=== PATIENT | female | born 1955 | race Caucasian/White ===

== ENCOUNTER 2017-09-17 19:01 | Inpatient (IN) | payer MEDICAID ==
[2017-09-17] MEDS ORDERED: NORMAL SALINE 1000 ML 1,000 ML IV ONE (19:52)
[2017-09-17] MEDS ORDERED: ONDANSETRON HCL INJ/PF 4 MG/2 ML SDV IV ONE (19:52)
[2017-09-17 20:09] LABS: HEMATOCRIT 41.8 % (36.0-47.0); HEMOGLOBIN 13.6 g/dL (12.0-15.5); MEAN CORPUSCULAR HEMOGLOBIN 27.5 pg (27.0-33.4); MEAN CORPUSCULAR HGB CONC 32.4 g/dL (32.0-36.0); MEAN CORPUSCULAR VOLUME 85 fl (80-97); PLATELET COUNT 333 10^3/uL (150-450); RED BLOOD COUNT 4.93 10^6/uL (3.72-5.28); RED CELL DISTRIBUTION WIDTH 14.2 % (11.5-14.0); WHITE BLOOD COUNT 19.4 10^3/uL (4.0-10.5)
[2017-09-17 20:12] LABS: ALANINE AMINOTRANSFERASE 19 U/L (9-52); ALKALINE PHOSPHATASE 83 U/L (38-126); ANION GAP 10 (5-19); ASPARTATE AMINO TRANSFERASE 26 U/L (14-36); BILIRUBIN,DIRECT 0.4 mg/dL (0.0-0.4); BILIRUBIN,TOTAL 0.8 mg/dL (0.2-1.3); BLOOD UREA NITROGEN 32 mg/dL (7-20); CALCIUM 9.8 mg/dL (8.4-10.2); CARBON DIOXIDE 25 mmol/L (22-30); CHLORIDE 107 mmol/L (98-107); GLUCOSE 145 mg/dL (75-110); LIPASE 129.6 U/L (23-300); SODIUM 142.4 mmol/L (137-145)
[2017-09-17] MEDS ORDERED: IPRATROPIUM/ALBUTEROL 0.5-2.5 MG/3 ML AMPUL NEB ONE (20:24)
--- NOTE | 2017-09-17 20:25 | ER Document Report ---
ED General - General Chief Complaint: Nausea/Vomiting/Diarrhea Stated Complaint: NAUSEA/VOMITING/DIARRHEA Time Seen by Provider: 09/17/17 19:51 Notes: Patient is a 62-year-old female with a past medical history of COPD with chronic oxygen dependence, morbid obesity, hypertension, hyperlipidemia, who presents with 24 hours of progressively worsening shortness of breath, vomiting and diarrhea. Multiple family members have been sick with the vomiting and diarrhea but nobody else has been complaining of respiratory symptoms. She notes that she has been unable to tolerate any oral intake for the past 24 hours since onset of her symptoms. Nothing seemed to improve or worsen her symptoms. She is uncertain of whether or not she has had similar symptoms in the past. She has not seen her primary doctor regarding today's concerns. She denies any chest pain, headache, neck pain or syncope. TRAVEL OUTSIDE OF THE [place] IN LAST 30 DAYS: No - Related Data Allergies/Adverse Reactions: codeine Allergy (Verified 09/17/17 19:15) guaifenesin [From Mucinex] Allergy (Verified 09/17/17 19:15) latex Allergy (Verified 09/17/17 19:15) Past Medical History - General Information source: Patient - Social History Smoking Status: Former Smoker Frequency of alcohol use: None Drug Abuse: None Lives with: Family Family History: Reviewed & Not Pertinent Review of Systems - Review of Systems Notes: Constitutional: Negative for fever. HENT: Negative for sore throat. Eyes: Negative for visual changes. Cardiovascular: Negative for chest pain. Respiratory: Positive for shortness of breath. Gastrointestinal: Positive for vomiting and diarrhea Genitourinary: Negative for dysuria. Musculoskeletal: Negative for back pain. Skin: Negative for rash. Neurological: Negative for headaches, weakness or numbness. 10 point ROS negative except as marked above and in HPI. Physical Exam - Vital signs Vitals: Resp BP Pulse Ox 21 H 119/68 95 09/17/17 19:43 09/17/17 19:43 09/17/17 19:43 Interpretation: Tachycardic, Tachypneic Notes: PHYSICAL EXAMINATION: GENERAL: Appears unwell, uncomfortable HEAD: Atraumatic, normocephalic. EYES: Pupils equal round and reactive to light, extraocular movements intact, sclera anicteric, conjunctiva are normal. ENT: nares patent, oropharynx clear without exudates. Dry mucous membranes. NECK: Normal range of motion, supple without lymphadenopathy LUNGS: Moderate tachypnea, respiratory rate at 28 breaths per minute. Diminished at the bases bilaterally. No wheezing or rhonchi HEART: Regular tachycardia without murmurs ABDOMEN: Soft, nontender, normoactive bowel sounds. No guarding, no rebound. No masses appreciated. EXTREMITIES: Normal range of motion, no pitting or edema. No cyanosis. NEUROLOGICAL: No focal neurological deficits. Moves all extremities spontaneously and on command. PSYCH: Normal mood, normal affect. SKIN: Warm, Dry, normal turgor, no rashes or lesions noted. Course - Re-evaluation Re-evalutation: 09/17/17 20:24 Patient presents with nausea diarrhea similar to symptoms that her entire family is having. Patient is quite dehydrated on initial exam with tachycardia into the 120s. She also complains of chronic dyspnea and states that it is slightly worse than baseline. She does wear 2 L by nasal cannula at baseline and is currently saturating 94% on level of supplemental oxygen nation. Blood pressures within normal limits. She does have a history of renal failure baseline but does not know her baseline creatinine I do not have an old for comparison. Will begin IV rehydration, antiemetics, will provide breathing treatments and obtain broad laboratories as well as a chest x-ray. 09/17/17 21:17 Chest x-ray shows findings concerning for possible bilateral lower lobe pneumonia particular given the patient has a profound leukocytosis in association with vomiting and diarrhea. She also reports that her shortness of breath is somewhat worse than baseline. Will begin treatment with IV levofloxacin. She remains tachycardic currently at 112 bpm. Will discuss with the hospitalist for admission 09/17/17 21:35 Dr. Fink is accepted the patient for admission. She remains moderately tachycardic. Maintenance fluids are running. A C. difficile will be added on - Vital Signs Vital signs: Temp Pulse Resp BP Pulse Ox 98.6 F 100 16 129/65 H 94 09/18/17 00:42 09/18/17 02:46 09/18/17 02:46 09/18/17 00:42 09/18/17 02:46 - Laboratory Result Diagrams: 09/17/17 19:47 09/17/17 19:47 Laboratory results interpreted by me: 01/19/18 01/19/18 19:47 19:47 WBC 19.4 H RDW 14.2 H Seg Neuts % (Manual) 95 H Band Neutrophils % 2 L Lymphocytes % (Manual) 1 L Monocytes % (Manual) 1 L Abs Neuts (Manual) 18.8 H Abs Lymphs (Manual) 0.2 L BUN 32 H Creatinine 1.65 H Est GFR ( Amer) 38 L Est GFR (Non-Af Amer) 32 L Glucose 145 H - Diagnostic Test Radiology reviewed: Image reviewed, Reports reviewed Radiology results interpreted by me: 09/17/17 21:18 Chest x-ray: Patchy infiltrates in the bilateral bases Discharge - Discharge Clinical Impression: Dehydration, Tachycardia, Vomiting and diarrhea Pneumonia of both lower lobes Qualifiers: Pneumonia type: due to unspecified organism Qualified Code(s): J18.9 - Pneumonia, unspecified organism Condition: Fair Disposition: ADMITTED INPATIENT Admitting Provider: [facility] Hospitalist [facility] Admitted: Telemetry
[2017-09-17 20:27] LABS: ABSOLUTE LYMPHOCYTES# (MANUAL) 0.2 10^3/uL (0.5-4.7); ABSOLUTE MONOCYTES # (MANUAL) 0.2 10^3/uL (0.1-1.4); ABSOLUTE NEUTROPHILS# (MANUAL) 18.8 10^3/uL (1.7-8.2); BAND NEUTROPHILS % (MANUAL) 2 % (3-5); BASOPHILS % (MANUAL) 0 % (0-2); EOSINOPHILS % (MANUAL) 1 % (0-6); LYMPHOCYTES % (MANUAL) 1 % (13-45); MONOCYTES % (MANUAL) 1 % (3-13); SEGMENTED NEUTROPHILS % (MAN) 95 % (42-78); TOTAL CELLS COUNTED 100
[2017-09-17 20:30] LABS: PLATELET COMMENT ADEQUATE; PLATELET LARGE PRESENT; RBC MORPHOLOGY COMMENT NORMO-CYTIC/CHROMIC
--- NOTE | 2017-09-17 21:07 | RADIOLOGY REPORT (SQ) ---
EXAM DESCRIPTION: CHEST SINGLE VIEW COMPLETED DATE/TIME: 09/17/2017 8:58 pm REASON FOR STUDY: sob COMPARISON: None. NUMBER OF VIEWS: One view. TECHNIQUE: Single frontal radiographic view of the chest acquired. LIMITATIONS: None. FINDINGS: LUNGS AND PLEURA: Patchy bibasilar opacities. No pneumothorax. No pleural effusion. Atten uated blood vessels and flattened jovita-diaphragms. MEDIASTINUM AND HILAR STRUCTURES: No masses. Contour normal. HEART AND VASCULAR STRUCTURES: Heart normal in size. Normal vasculature. BONES: No acute findings. HARDWARE: None in the chest. OTHER: No other significant finding. IMPRESSION: COPD. PATCHY BIBASILAR OPACITIES COULD BE SUBSEGMENTAL ATELECTASIS, ASPIRATION, OR DEVE LOPING PNEUMONIA. TECHNICAL DOCUMENTATION: JOB ID: [id number] [employer] All Rights Reserved
[2017-09-17] MEDS ORDERED: LEVOFLOXACIN 750 MG/D5W RTU 750 MG/150 ML RTUPB IV ONE (21:16)
[2017-09-17 21:24] LABS: A TYPE INFLUENZA AG NEGATIVE (NEGATIVE); B INFLUENZA AG NEGATIVE (NEGATIVE)
[2017-09-17] MEDS ORDERED: DEXTROSE 40% GEL 15 GM TUBE PO PRN ×2 (21:29)
[2017-09-17] MEDS ORDERED: GLUCAGON,HUMAN RECOMB 1 MG INJ IM PRN (21:29)
[2017-09-17] MEDS ORDERED: HYDRALAZINE HCL INJ/PF 20 MG/1 ML SDV IV PRN (21:29)
[2017-09-17] MEDS ORDERED: IPRATROPIUM/ALBUTEROL 0.5-2.5 MG/3 ML AMPUL NEB PRN (21:29)
[2017-09-17] MEDS ORDERED: INSULIN LISPRO 100 UNIT/ML 3 ML VIAL SUBCUT PRN (21:29)
[2017-09-17] MEDS ORDERED: GUAIFENESIN SYRP 200 MG/10 ML UDC PO PRN (21:29)
[2017-09-17] MEDS ORDERED: DEXTROSE 50%-WATER 25 GM/50 ML DISP.SYRIN IV PRN ×2 (21:29)
[2017-09-17] MEDS: NORMAL SALINE 1000 ML 1,000 ML IV SCH (22:18)
[2017-09-17] MEDS ORDERED: CHLORPHENIRAMINE MALEATE 4 MG TABLET PO ONE (22:30)
[2017-09-17] MEDS: FLUTICASONE NASAL SPRAY 50 MCG/SPRY 120 SPRAY/16 GM NASL SCH (23:16)
[2017-09-17] MEDS: HEPARIN SOD (PORCINE) 5,000 UNIT/ML 1 ML SYRINGE SUBCUT SCH (23:23)
[2017-09-17] MEDS: GUAIFENESIN 600 MG TABLET.SA PO SCH (23:35)
[2017-09-18] MEDS ORDERED: CEFTRIAXONE SODIUM 1,000 MG in DEXTROSE 5%-WATER 50 ML IV ONE ×2
[2017-09-18] MEDS: AZITHROMYCIN 500 MG in DEXTROSE 5%-WATER 250 ML IV SCH ×2 (02:19→22:37)
[2017-09-18] MEDS: IPRATROPIUM/ALBUTEROL 0.5-2.5 MG/3 ML AMPUL NEB SCH ×4 (02:24→20:00)
[2017-09-18] MEDS: ACETAMINOPHEN 325 MG TABLET PO PRN ×4 (03:27→19:29)
[2017-09-18] MEDS: HEPARIN SOD (PORCINE) 5,000 UNIT/ML 1 ML SYRINGE SUBCUT SCH ×3 (05:41→22:37)
[2017-09-18 06:23] LABS: HEMATOCRIT 32.9 % (36.0-47.0); MEAN CORPUSCULAR HEMOGLOBIN 27.8 pg (27.0-33.4); MEAN CORPUSCULAR HGB CONC 32.4 g/dL (32.0-36.0); MEAN CORPUSCULAR VOLUME 86 fl (80-97); PLATELET COUNT 269 10^3/uL (150-450); RED BLOOD COUNT 3.84 10^6/uL (3.72-5.28); RED CELL DISTRIBUTION WIDTH 14.7 % (11.5-14.0); WHITE BLOOD COUNT 12.4 10^3/uL (4.0-10.5)
--- NOTE | 2017-09-18 06:23 | PDOC H&P ---
History of Present Illness Admission Date/PCP: 09/17/17 21:42 ANDREEA MARIE Patient complains of: Nausea, vomiting and shortness of breath History of Present Illness: LUIS EDUARDO GARDNER is a 62 year old female with a past medical history of oxygen dependent COPD, stage III chronic kidney disease, diabetes, recurrent urinary tract infection, obstructive sleep apnea and morbid obesity. She presents after 6 hours of nausea vomiting and diarrhea followed by shortness of breath. Several members of her family have similar symptoms of GI complaints. She denies chest pain or palpitations. In the emergency room she is found to have leukocytosis, tachypnea and a chest x-ray with bibasilar infiltrate suggestive of pneumonia. She started on empiric antibiotics, albuterol and referred to the hospitalist for admission. Past Medical History Pulmonary Medical History: Reports: Asthma, Bronchitis, Chronic Obstructive Pulmonary Disease (COPD), Sleep Apnea Endocrine Medical History: Reports: Diabetes Mellitus Type 2, Obesity Past Surgical History Past Surgical History: Reports: Cholecystectomy, Hysterectomy Social History Information Source: Patient Lives with: Family Smoking Status: Former Smoker Last Time Smoked: 2001 Frequency of Alcohol Use: None Hx Recreational Drug Use: No Drugs: None Hx Prescription Drug Abuse: No - Advance Directive Resuscitation Status: Full Code Family History Family History: COPD, Hypertension Parental Family History Reviewed: Yes Children Family History Reviewed: Yes Sibling(s) Family History Reviewed.: Yes Medication/Allergy Allergies/Adverse Reactions: codeine Allergy (Verified 09/17/17 19:15) guaifenesin [From Mucinex] Allergy (Verified 09/17/17 19:15) latex Allergy (Verified 09/17/17 19:15) Review of Systems Constitutional: ABSENT: chills, fever(s), headache(s), weight gain, weight loss Eyes: ABSENT: visual disturbances Ears: ABSENT: hearing changes Cardiovascular: ABSENT: chest pain, dyspnea on exertion, edema, orthropnea, palpitations Respiratory: ABSENT: cough, hemoptysis Gastrointestinal: ABSENT: abdominal pain, constipation, diarrhea, hematemesis, hematochezia, nausea, vomiting Genitourinary: ABSENT: dysuria, hematuria Musculoskeletal: ABSENT: joint swelling Integumentary: ABSENT: rash, wounds Neurological: ABSENT: abnormal gait, abnormal speech, confusion, dizziness, focal weakness, syncope Psychiatric: ABSENT: anxiety, depression, homidical ideation, suicidal ideation Endocrine: ABSENT: cold intolerance, heat intolerance, polydipsia, polyuria Hematologic/Lymphatic: ABSENT: easy bleeding, easy bruising Physical Exam Vital Signs: Temp Pulse Resp BP Pulse Ox 103.1 F H 111 H 19 106/45 L 95 09/18/17 03:00 09/18/17 03:00 09/18/17 03:00 09/18/17 03:00 09/18/17 03:00 Intake & Output 09/16/17 09/17/17 09/18/17 11:59 11:59 11:59 Weight 85.4 kg Results Impressions: Chest X-Ray 09/17/17 19:51 IMPRESSION: COPD. PATCHY BIBASILAR OPACITIES COULD BE SUBSEGMENTAL ATELECTASIS , ASPIRATION, OR DEVELOPING PNEUMONIA. Assessment & Plan - Diagnosis (1) Pneumonia of both lower lobes Qualifiers: Pneumonia type: due to unspecified organism Qualified Code(s): J18.9 - Pneumonia, unspecified organism Is this a current diagnosis for this admission?: Yes Plan: Pneumonia care set, follow-up blood culture and CBC (2) Diabetes Is this a current diagnosis for this admission?: Yes Plan: Home regiment with sliding scale (3) Chronic kidney disease Is this a current diagnosis for this admission?: Yes Plan: Avoid nephrotoxic meds and doses reevaluate chemistry (4) Vomiting and diarrhea Is this a current diagnosis for this admission?: Yes Plan: History suggests gastroenteritis, evaluate C. difficile given chronic Cipro therapy otherwise supportive care (5) Obstructive sleep apnea Is this a current diagnosis for this admission?: Yes Plan: BiPAP ordered - Time Time Spent: 50 to 70 Minutes - Inpatient Certification Medical Necessity: Need Close Monitoring Due to Risk of Patient Decompensation
[2017-09-18 06:26] LABS: HEMOGLOBIN 10.7 g/dL (12.0-15.5)
[2017-09-18 06:38] LABS: ANION GAP 9 (5-19); BLOOD UREA NITROGEN 27 mg/dL (7-20); CARBON DIOXIDE 22 mmol/L (22-30); CHLORIDE 110 mmol/L (98-107); GLUCOSE 86 mg/dL (75-110); POTASSIUM 3.7 mmol/L (3.6-5.0); SODIUM 141.4 mmol/L (137-145)
[2017-09-18 06:45] LABS: ABSOLUTE LYMPHOCYTES# (MANUAL) 0.4 10^3/uL (0.5-4.7); ABSOLUTE MONOCYTES # (MANUAL) 1.1 10^3/uL (0.1-1.4); ABSOLUTE NEUTROPHILS# (MANUAL) 10.8 10^3/uL (1.7-8.2); BASOPHILS % (MANUAL) 0 % (0-2); EOSINOPHILS % (MANUAL) 1 % (0-6); LYMPHOCYTES % (MANUAL) 3 % (13-45); MONOCYTES % (MANUAL) 9 % (3-13); SEGMENTED NEUTROPHILS % (MAN) 87 % (42-78); TOTAL CELLS COUNTED 100
[2017-09-18 06:46] LABS: ANISOCYTOSIS SLIGHT; PLATELET COMMENT ADEQUATE; TOXIC VACUOLATION PRESENT
[2017-09-18] MEDS: FLUTICASONE NASAL SPRAY 50 MCG/SPRY 120 SPRAY/16 GM NASL SCH ×2 (09:35→22:37)
[2017-09-18] MEDS: GUAIFENESIN 600 MG TABLET.SA PO SCH (09:36)
[2017-09-18] MEDS ORDERED: CEFTRIAXONE 1 GM/D5W RTU 50 ML IV SCH (10:00)
[2017-09-18] MEDS: NORMAL SALINE 1000 ML 1,000 ML IV SCH ×2 (11:12→17:11)
[2017-09-18] MEDS ORDERED: CHOLECALCIFEROL (D3) 400 UNIT TABLET PO ONE (14:00)
[2017-09-18] MEDS ORDERED: ASPIRIN 81 MG TABLET, ENT COATED PO ONE (14:00)
[2017-09-18] MEDS ORDERED: VITAMIN E (DL, ACETATE) 400 UNIT CAPSULE PO ONE (14:00)
[2017-09-18] MEDS ORDERED: LANSOPRAZOLE 30 MG TAB.RAP.DR PO ONE (14:00)
[2017-09-18] MEDS ORDERED: DIPHENHYDRAMINE HCL 25 MG CAPSULE PO ONE (14:00)
[2017-09-18] MEDS ORDERED: LEVOTHYROXINE SODIUM 0.112 MG TABLET PO ONE (14:00)
[2017-09-18] MEDS ORDERED: SPIRONOLACTONE 25 MG TABLET PO ONE (14:00)
[2017-09-18 14:39] LABS: APPEARANCE,URINE CLEAR; BILIRUBIN,URINE NEGATIVE (NEGATIVE); COLOR,URINE STRAW; GLUCOSE, URINE 50 mg/dL (NEGATIVE); KETONES,URINE NEGATIVE (NEGATIVE); LEUKOCYTE ESTERASE,URINE NEGATIVE (NEGATIVE); NITRITE,URINE NEGATIVE (NEGATIVE); PROTEIN,URINE NEGATIVE (NEGATIVE); UROBILINOGEN,URINE NEGATIVE mg/dL (<2.0)
[2017-09-18] MEDS: IPRATROPIUM/ALBUTEROL 120 PUFF/4 GM MDI IH SCH ×3 (14:50→22:37)
[2017-09-18] MEDS: SIMVASTATIN 10 MG TABLET PO SCH (17:12)
[2017-09-18] MEDS: CEFTRIAXONE SODIUM 1,000 MG in DEXTROSE 5%-WATER 50 ML IV SCH (17:12)
--- NOTE | 2017-09-18 17:42 | PDOC PROGRESS REPORT ---
Subjective Progress Note for:: 09/18/17 Subjective:: Patient is doing a lot better she had no further vomiting She has no abdominal pain She is tolerating a full diet Reason For Visit: COPD EXACERBATION PNEUMONIA, DM, DANNA Physical Exam Vital Signs: Temp Pulse Resp BP Pulse Ox 98.3 F 104 H 20 140/58 H 97 09/18/17 15:27 09/18/17 15:27 09/18/17 15:27 09/18/17 15:27 09/18/17 15:27 Intake & Output 09/17/17 09/18/17 09/19/17 00:59 00:59 00:59 Intake Total 2850 Balance 2850 Weight 85.4 kg 85.4 kg General appearance: PRESENT: no acute distress, well-developed, well-nourished Head exam: PRESENT: atraumatic, normocephalic Eye exam: PRESENT: conjunctiva pink, EOMI, PERRLA. ABSENT: scleral icterus Neck exam: ABSENT: carotid bruit, JVD, lymphadenopathy, thyromegaly Respiratory exam: PRESENT: clear to auscultation angel. ABSENT: rales, rhonchi, wheezes Cardiovascular exam: PRESENT: RRR. ABSENT: diastolic murmur, rubs, systolic murmur Pulses: PRESENT: normal dorsalis pedis pul GI/Abdominal exam: PRESENT: normal bowel sounds, soft. ABSENT: distended, guarding, mass, organolmegaly, rebound, tenderness Neurological exam: PRESENT: alert, awake, CN II-XII grossly intact Results Laboratory Results: 09/18/17 05:37 09/18/17 05:37 09/18/17 09/18/17 09/18/17 05:37 05:37 14:20 WBC 12.4 H RBC 3.84 Hgb 10.7 L D Hct 32.9 L MCV 86 MCH 27.8 MCHC 32.4 RDW 14.7 H Plt Count 269 Seg Neutrophils % Not Reportable Lymphocytes % Not Reportable Monocytes % Not Reportable Eosinophils % Not Reportable Basophils % Not Reportable Absolute Neutrophils Not Reportable Absolute Lymphocytes Not Reportable Absolute Monocytes Not Reportable Absolute Eosinophils Not Reportable Absolute Basophils Not Reportable Sodium 141.4 Potassium 3.7 Chloride 110 H Carbon Dioxide 22 Anion Gap 9 BUN 27 H Creatinine 1.58 H Est GFR ( Amer) 40 L Est GFR (Non-Af Amer) 33 L Glucose 86 Calcium 8.0 L Urine Color STRAW Urine Appearance CLEAR Urine pH 5.0 Ur Specific Alpha 1.010 Urine Protein NEGATIVE Urine Glucose (UA) 50 H Urine Ketones NEGATIVE Urine Blood SMALL H Urine Nitrite NEGATIVE Ur Leukocyte Esterase NEGATIVE Urine WBC (Auto) 4 Urine RBC (Auto) 0 Impressions: Chest X-Ray 09/17/17 19:51 IMPRESSION: COPD. PATCHY BIBASILAR OPACITIES COULD BE SUBSEGMENTAL ATELECTASIS , ASPIRATION, OR DEVELOPING PNEUMONIA. Assessment & Plan - Diagnosis (1) Chronic kidney disease Qualifiers: Chronic kidney disease stage: stage 3 (moderate) Qualified Code(s): N18.3 - Chronic kidney disease, stage 3 (moderate) Is this a current diagnosis for this admission?: Yes Plan: We do not have any prior BUN and creatinine We will continue to hydrate and repeat BMP in a.m. (2) Dehydration Is this a current diagnosis for this admission?: Yes (3) Obstructive sleep apnea Is this a current diagnosis for this admission?: Yes (4) Pneumonia of both lower lobes Qualifiers: Pneumonia type: due to unspecified organism Qualified Code(s): J18.9 - Pneumonia, unspecified organism Is this a current diagnosis for this admission?: Yes Plan: Patient does have leukocytosis but no fever no cough Chest x-ray reads bilateral atelectasis versus infiltrates We will continue antibiotics but use incentive spirometry and repeat chest x- ray in a.m. (5) Vomiting and diarrhea Is this a current diagnosis for this admission?: Yes Plan: Has resolved and patient is feeling a lot better - Time Time Spent with patient: Patient may be discharged in a.m. if indeed feeling better Follow-up chest x-ray in a.m. repeat BMP
[2017-09-18] MEDS: FLUTICASONE/SALMETEROL DISKUS 250-50 MCG/DOSE IH SCH (22:37)
[2017-09-19] MEDS: ACETAMINOPHEN 325 MG TABLET PO PRN ×3 (00:04→21:57)
[2017-09-19] MEDS: IPRATROPIUM/ALBUTEROL 0.5-2.5 MG/3 ML AMPUL NEB SCH ×4 (02:32→20:43)
[2017-09-19] MEDS: LANSOPRAZOLE 30 MG TAB.RAP.DR PO SCH (05:49)
[2017-09-19] MEDS: HEPARIN SOD (PORCINE) 5,000 UNIT/ML 1 ML SYRINGE SUBCUT SCH ×3 (05:49→21:42)
[2017-09-19 06:52] LABS: ANION GAP 10 (5-19); BLOOD UREA NITROGEN 19 mg/dL (7-20); CALCIUM 8.7 mg/dL (8.4-10.2); CARBON DIOXIDE 17 mmol/L (22-30); CHLORIDE 116 mmol/L (98-107); GLUCOSE 76 mg/dL (75-110); SODIUM 143.4 mmol/L (137-145)
[2017-09-19] MEDS: LEVOTHYROXINE SODIUM 0.112 MG TABLET PO SCH (07:53)
[2017-09-19 09:21] LABS: HEMATOCRIT 34.5 % (36.0-47.0); HEMOGLOBIN 11.2 g/dL (12.0-15.5); MEAN CORPUSCULAR HEMOGLOBIN 27.9 pg (27.0-33.4); MEAN CORPUSCULAR HGB CONC 32.4 g/dL (32.0-36.0); MEAN CORPUSCULAR VOLUME 86 fl (80-97); PLATELET COUNT 253 10^3/uL (150-450); RED BLOOD COUNT 4.01 10^6/uL (3.72-5.28); RED CELL DISTRIBUTION WIDTH 15.1 % (11.5-14.0); WHITE BLOOD COUNT 7.1 10^3/uL (4.0-10.5)
[2017-09-19 09:46] LABS: ABSOLUTE LYMPHOCYTES# (MANUAL) 1.1 10^3/uL (0.5-4.7); ABSOLUTE MONOCYTES # (MANUAL) 0.7 10^3/uL (0.1-1.4); ABSOLUTE NEUTROPHILS# (MANUAL) 5.3 10^3/uL (1.7-8.2); BAND NEUTROPHILS % (MANUAL) 5 % (3-5); BASOPHILS % (MANUAL) 0 % (0-2); EOSINOPHILS % (MANUAL) 0 % (0-6); HYPOCHROMASIA SLIGHT; LYMPHOCYTES % (MANUAL) 16 % (13-45); MONOCYTES % (MANUAL) 10 % (3-13); SEGMENTED NEUTROPHILS % (MAN) 69 % (42-78); TOTAL CELLS COUNTED 100
[2017-09-19 09:47] LABS: PLATELET COMMENT ADEQUATE
[2017-09-19] MEDS: ASPIRIN 81 MG TABLET, ENT COATED PO SCH (10:39)
[2017-09-19] MEDS: DIPHENHYDRAMINE HCL 25 MG CAPSULE PO SCH (10:39)
[2017-09-19] MEDS: VITAMIN E (DL, ACETATE) 400 UNIT CAPSULE PO SCH (10:39)
[2017-09-19] MEDS: IPRATROPIUM/ALBUTEROL 120 PUFF/4 GM MDI IH SCH ×4 (10:39→21:54)
[2017-09-19] MEDS: FLUTICASONE NASAL SPRAY 50 MCG/SPRY 120 SPRAY/16 GM NASL SCH ×2 (10:39→21:42)
[2017-09-19] MEDS: SPIRONOLACTONE 25 MG TABLET PO SCH (10:39)
[2017-09-19] MEDS: CHOLECALCIFEROL (D3) 400 UNIT TABLET PO SCH (10:39)
[2017-09-19] MEDS: FLUTICASONE/SALMETEROL DISKUS 250-50 MCG/DOSE IH SCH ×2 (10:39→21:54)
[2017-09-19] MEDS ORDERED: ONDANSETRON 4 MG TAB.RAPDIS SL PRN (11:40)
[2017-09-19] MEDS ORDERED: ONDANSETRON HCL INJ/PF 4 MG/2 ML SDV IV PRN (12:30)
--- NOTE | 2017-09-19 16:32 | PDOC PROGRESS REPORT ---
Subjective Progress Note for:: 09/19/17 Subjective:: The patient is resting in her bed. She has concerns that she has been receiving fingerstick blood sugars and is on a diabetic diet when she does not have diabetes. I did explain to her that this was likely because she was on IV Solu-Medrol. Her blood sugars have been stable and we are going to change her to a regular diet and stop the fingersticks. She is quite pleased with this. Otherwise she states that she continues to have some issues with nausea. She has had no vomiting. No fever or chills. She states her shortness of breath is at its baseline. Her cough is improving. She states her wheezing is improving as well. She is not having any abdominal pain today. No diarrhea. No dysuria, frequency or hematuria. Reason For Visit: COPD EXACERBATION PNEUMONIA, DM, DANNA Physical Exam Vital Signs: Temp Pulse Resp BP Pulse Ox 98.2 F 90 18 131/60 H 96 09/19/17 15:00 09/19/17 15:00 09/19/17 15:00 09/19/17 15:00 09/19/17 15:00 Intake & Output 09/18/17 09/19/17 09/20/17 06:59 06:59 06:59 Intake Total 2850 3130 Output Total 1100 Balance 2850 2030 Weight 85.4 kg 88.2 kg General appearance: PRESENT: no acute distress, well-developed, well-nourished, other - She is receiving oxygen via nasal cannula Head exam: PRESENT: atraumatic, normocephalic Mouth exam: PRESENT: moist, tongue midline Respiratory exam: PRESENT: decreased breath sounds, wheezes Cardiovascular exam: PRESENT: RRR. ABSENT: diastolic murmur, rubs, systolic murmur GI/Abdominal exam: PRESENT: normal bowel sounds, soft. ABSENT: distended, guarding, mass, organolmegaly, rebound, tenderness Extremities exam: PRESENT: full ROM. ABSENT: calf tenderness, clubbing, pedal edema Neurological exam: PRESENT: alert, awake, oriented to person, oriented to place , oriented to time, oriented to situation, CN II-XII grossly intact. ABSENT: motor sensory deficit Psychiatric exam: PRESENT: appropriate affect, normal mood. ABSENT: homicidal ideation, suicidal ideation Skin exam: PRESENT: dry, intact, warm. ABSENT: cyanosis, rash Results Laboratory Results: 09/19/17 08:32 09/19/17 06:00 09/19/17 09/19/17 09/19/17 06:00 06:00 08:32 WBC Cancelled 7.1 RBC Cancelled 4.01 Hgb Cancelled 11.2 L Hct Cancelled 34.5 L MCV Cancelled 86 MCH Cancelled 27.9 MCHC Cancelled 32.4 RDW Cancelled 15.1 H Plt Count Cancelled 253 Seg Neutrophils % Cancelled Not Reportable Lymphocytes % Cancelled Not Reportable Monocytes % Cancelled Not Reportable Eosinophils % Cancelled Not Reportable Basophils % Cancelled Not Reportable Absolute Neutrophils Cancelled Not Reportable Absolute Lymphocytes Cancelled Not Reportable Absolute Monocytes Cancelled Not Reportable Absolute Eosinophils Cancelled Not Reportable Absolute Basophils Cancelled Not Reportable Sodium 143.4 Potassium 4.0 Chloride 116 H Carbon Dioxide 17 L Anion Gap 10 BUN 19 Creatinine 1.45 H Est GFR ( Amer) 44 L Est GFR (Non-Af Amer) 37 L Glucose 76 Calcium 8.7 Impressions: Chest X-Ray 09/17/17 19:51 IMPRESSION: COPD. PATCHY BIBASILAR OPACITIES COULD BE SUBSEGMENTAL ATELECTASIS , ASPIRATION, OR DEVELOPING PNEUMONIA. Assessment & Plan - Diagnosis (1) Pneumonia Is this a current diagnosis for this admission?: Yes Plan: Continue Zithromax and Rocephin. She is improving. Concerns for community- acquired pathogens such as gram positives and atypicals. (2) Chronic respiratory failure Is this a current diagnosis for this admission?: Yes Plan: She is at her baseline oxygen requirements. (3) Vomiting and diarrhea Is this a current diagnosis for this admission?: Yes Plan: No further episodes of vomiting or diarrhea but she is quite nauseated this morning. We will start the patient on some Zofran. It could just be the antibiotics making her nauseated at this point. (4) Obstructive sleep apnea Is this a current diagnosis for this admission?: Yes Plan: Continue CPAP at night (5) Chronic kidney disease Qualifiers: Chronic kidney disease stage: stage 3 (moderate) Qualified Code(s): N18.3 - Chronic kidney disease, stage 3 (moderate) Is this a current diagnosis for this admission?: Yes Plan: She is at her baseline (6) Obesity (BMI 30.0-34.9) Is this a current diagnosis for this admission?: Yes Plan: Dietary discretion is advised (7) Metabolic acidosis Is this a current diagnosis for this admission?: Yes Plan: Of undetermined significance at this point. At this point I will simply check a chemistry panel in the morning. Possibly due to her acute illness although she does look improved. (8) Anemia Is this a current diagnosis for this admission?: Yes Plan: She had a precipitous drop in hemoglobin likely due to hemodilution. Improving (9) Full code status Is this a current diagnosis for this admission?: Yes - Time Time Spent with patient: 25-34 minutes - Inpatient Certification Medical Necessity: Other - Inpatient hospitalization remains necessary. The patient is requiring parenteral therapies for pneumonia. She is improving. We need physical therapy to evaluate her tomorrow and make sure she can ambulate. Timing of disposition will be determined by her clinical course.
[2017-09-19] MEDS: CEFTRIAXONE SODIUM 1,000 MG in DEXTROSE 5%-WATER 50 ML IV SCH (17:33)
[2017-09-19] MEDS: SIMVASTATIN 10 MG TABLET PO SCH (17:33)
[2017-09-19] MEDS: AZITHROMYCIN 500 MG in DEXTROSE 5%-WATER 250 ML IV SCH (21:54)
[2017-09-20] MEDS: IPRATROPIUM/ALBUTEROL 0.5-2.5 MG/3 ML AMPUL NEB SCH ×4 (02:25→20:14)
[2017-09-20] MEDS: HEPARIN SOD (PORCINE) 5,000 UNIT/ML 1 ML SYRINGE SUBCUT SCH ×3 (05:43→22:35)
[2017-09-20] MEDS: LANSOPRAZOLE 30 MG TAB.RAP.DR PO SCH (05:43)
[2017-09-20 06:22] LABS: ABSOLUTE EOSINOPHILS # (AUTO) 0.2 10^3/uL (0.0-0.6); ABSOLUTE LYMPHOCYTES (AUTO) 1.4 10^3/uL (0.5-4.7); ABSOLUTE MONOCYTES (AUTO) 0.9 10^3/uL (0.1-1.4); ABSOLUTE NEUT (AUTO) 2.8 10^3/uL (1.7-8.2); BASOPHILS % (AUTO) 0.8 % (0-2); EOSINOPHILS % (AUTO) 3.7 % (0-6); HEMATOCRIT 31.6 % (36.0-47.0); HEMOGLOBIN 10.4 g/dL (12.0-15.5); LYMPHOCYTES % (AUTO) 26.1 % (13-45); MEAN CORPUSCULAR HEMOGLOBIN 28.4 pg (27.0-33.4); MEAN CORPUSCULAR VOLUME 86 fl (80-97); MONOCYTES % (AUTO) 16.4 % (3-13); PLATELET COUNT 237 10^3/uL (150-450); RED BLOOD COUNT 3.66 10^6/uL (3.72-5.28); RED CELL DISTRIBUTION WIDTH 14.6 % (11.5-14.0); TOTAL CELLS COUNTED % (AUTO) 100 %; WHITE BLOOD COUNT 5.3 10^3/uL (4.0-10.5)
[2017-09-20 06:40] LABS: BLOOD UREA NITROGEN 16 mg/dL (7-20); CALCIUM 8.6 mg/dL (8.4-10.2); CHLORIDE 109 mmol/L (98-107); GLUCOSE 79 mg/dL (75-110); MAGNESIUM 1.9 mg/dL (1.6-2.3); POTASSIUM 3.6 mmol/L (3.6-5.0); SODIUM 144.1 mmol/L (137-145)
[2017-09-20 06:50] LABS: ANION GAP 6 (5-19)
[2017-09-20 06:52] LABS: CARBON DIOXIDE 29 mmol/L (22-30)
[2017-09-20] MEDS: LEVOTHYROXINE SODIUM 0.112 MG TABLET PO SCH (08:34)
[2017-09-20] MEDS: ACETAMINOPHEN 325 MG TABLET PO PRN (08:38)
[2017-09-20] MEDS: CHOLECALCIFEROL (D3) 400 UNIT TABLET PO SCH (09:11)
[2017-09-20] MEDS: DIPHENHYDRAMINE HCL 25 MG CAPSULE PO SCH (09:11)
[2017-09-20] MEDS: SPIRONOLACTONE 25 MG TABLET PO SCH (09:11)
[2017-09-20] MEDS: VITAMIN E (DL, ACETATE) 400 UNIT CAPSULE PO SCH (09:11)
[2017-09-20] MEDS: ASPIRIN 81 MG TABLET, ENT COATED PO SCH (09:11)
[2017-09-20] MEDS: IPRATROPIUM/ALBUTEROL 120 PUFF/4 GM MDI IH SCH ×4 (09:13→22:34)
[2017-09-20] MEDS: FLUTICASONE NASAL SPRAY 50 MCG/SPRY 120 SPRAY/16 GM NASL SCH ×2 (09:13→22:39)
[2017-09-20] MEDS: FLUTICASONE/SALMETEROL DISKUS 250-50 MCG/DOSE IH SCH ×2 (09:14→22:34)
--- NOTE | 2017-09-20 12:06 | PDOC PROGRESS REPORT ---
Subjective Progress Note for:: 09/20/17 Subjective:: The patient is a 62-year-old female with a past medical history significant for oxygen dependent COPD, stage III chronic kidney disease, diabetes, recurrent urinary tract infections and obstructive sleep apnea. The patient presented to the emergency room with a 6 hour history of nausea vomiting and diarrhea followed by shortness of breath. In the emergency room she was found to have a significant leukocytosis found to have evidence of bibasilar infiltrates concerning for pneumonia. She was started on IV Zithromax and Rocephin and she is doing quite well. Her nausea and vomiting have totally resolved. The patient is quite nervous about going home today as she is afraid she will worsen and have to come back to the hospital. We are going to change her over to an oral regimen of antibiotics today to make sure that she stays stable and has no issues tolerating the oral antibiotics. If she does well overnight she hopefully can be discharged in the morning. Today she denies fever or chills. She continues to have a little bit of a cough but she is not acutely short of breath. She is at her baseline oxygen requirements. She has had no further episodes of nausea or vomiting. No abdominal pain. No dysuria, frequency or hematuria. Reason For Visit: COPD EXACERBATION PNEUMONIA, DM, DANNA Physical Exam Vital Signs: Temp Pulse Resp BP Pulse Ox 98.0 F 84 16 116/64 95 09/20/17 07:00 09/20/17 07:58 09/20/17 07:58 09/20/17 07:00 09/20/17 07:00 Intake & Output 09/19/17 09/20/17 09/21/17 06:59 06:59 06:59 Intake Total 3130 1802 Output Total 1100 Balance 2029 1802 Weight 88.2 kg 88.3 kg General appearance: PRESENT: no acute distress, well-developed, well-nourished, other - She is receiving oxygen via nasal cannula Head exam: PRESENT: atraumatic, normocephalic Mouth exam: PRESENT: moist, tongue midline Respiratory exam: PRESENT: decreased breath sounds - She has some mild end expiratory wheezing. She also has decreased breath sounds., wheezes. ABSENT: rales, rhonchi Cardiovascular exam: PRESENT: RRR. ABSENT: diastolic murmur, rubs, systolic murmur GI/Abdominal exam: PRESENT: normal bowel sounds, soft. ABSENT: distended, guarding, mass, organolmegaly, rebound, tenderness Extremities exam: PRESENT: full ROM. ABSENT: calf tenderness, clubbing, pedal edema Neurological exam: PRESENT: alert, awake, oriented to person, oriented to place , oriented to time, oriented to situation, CN II-XII grossly intact. ABSENT: motor sensory deficit Psychiatric exam: PRESENT: appropriate affect, normal mood. ABSENT: homicidal ideation, suicidal ideation Skin exam: PRESENT: dry, intact, warm. ABSENT: cyanosis, rash Results Laboratory Results: 09/20/17 05:47 09/20/17 05:47 09/20/17 09/20/17 05:47 05:47 WBC 5.3 RBC 3.66 L Hgb 10.4 L Hct 31.6 L MCV 86 MCH 28.4 MCHC 33.0 RDW 14.6 H Plt Count 237 Seg Neutrophils % 53.0 Lymphocytes % 26.1 Monocytes % 16.4 H Eosinophils % 3.7 Basophils % 0.8 Absolute Neutrophils 2.8 Absolute Lymphocytes 1.4 Absolute Monocytes 0.9 Absolute Eosinophils 0.2 Absolute Basophils 0.0 Sodium 144.1 Potassium 3.6 Chloride 109 H Carbon Dioxide 29 D Anion Gap 6 BUN 16 Creatinine 1.57 H Est GFR ( Amer) 41 L Est GFR (Non-Af Amer) 33 L Glucose 79 Calcium 8.6 Magnesium 1.9 Impressions: Chest X-Ray 09/17/17 19:51 IMPRESSION: COPD. PATCHY BIBASILAR OPACITIES COULD BE SUBSEGMENTAL ATELECTASIS , ASPIRATION, OR DEVELOPING PNEUMONIA. Assessment & Plan - Diagnosis (1) Pneumonia Is this a current diagnosis for this admission?: Yes Plan: Continue Zithromax and Rocephin. She is improving. Concerns for community- acquired pathogens such as gram positives and atypicals. This is day #3 of treatment. I am going to stop her IV antibiotics today. We will simply continue the patient on Zithromax for now. This is day number 3 out of 5 days of treatment. (2) Chronic respiratory failure Is this a current diagnosis for this admission?: Yes Plan: She is at her baseline oxygen requirements. (3) Vomiting and diarrhea Is this a current diagnosis for this admission?: Yes Plan: Possibly due to a viral gastroenteritis versus her pneumonia. Her nausea vomiting and diarrhea have totally resolved at this point. (4) Obstructive sleep apnea Is this a current diagnosis for this admission?: Yes Plan: Continue CPAP at night (5) Chronic kidney disease Qualifiers: Chronic kidney disease stage: stage 3 (moderate) Qualified Code(s): N18.3 - Chronic kidney disease, stage 3 (moderate) Is this a current diagnosis for this admission?: Yes Plan: She is at her baseline (6) Obesity (BMI 30.0-34.9) Is this a current diagnosis for this admission?: Yes Plan: Dietary discretion is advised (7) Metabolic acidosis Is this a current diagnosis for this admission?: Yes Plan: Resolved at this point. It may have been a lab error (8) Anemia Is this a current diagnosis for this admission?: Yes Plan: She had a precipitous drop in hemoglobin likely due to hemodilution. Improving (9) Full code status Is this a current diagnosis for this admission?: Yes - Time Time Spent with patient: 25-34 minutes - Inpatient Certification Medical Necessity: Other - Inpatient hospitalization remains necessary. At this point the patient is significantly improved. I am going to change her over to an oral regimen. If she tolerates it overnight and is stable she likely can be discharged in the morning.
[2017-09-20] MEDS: SIMVASTATIN 10 MG TABLET PO SCH (18:00)
[2017-09-21] MEDS: IPRATROPIUM/ALBUTEROL 0.5-2.5 MG/3 ML AMPUL NEB SCH ×2 (02:07→08:02)
[2017-09-21] MEDS: LANSOPRAZOLE 30 MG TAB.RAP.DR PO SCH (06:00)
[2017-09-21] MEDS: HEPARIN SOD (PORCINE) 5,000 UNIT/ML 1 ML SYRINGE SUBCUT SCH (06:11)
[2017-09-21] MEDS: LEVOTHYROXINE SODIUM 0.112 MG TABLET PO SCH (07:37)
[2017-09-21] MEDS ORDERED: PROMETHAZINE HCL 25 MG TABLET PO PRN (09:54)
[2017-09-21] MEDS ORDERED: BENZONATATE 100 MG CAPSULE PO PRN (09:54)
[2017-09-21] MEDS ORDERED: AZITHROMYCIN 250 MG TABLET PO SCH (10:00)
[2017-09-21] MEDS: SPIRONOLACTONE 25 MG TABLET PO SCH (10:27)
[2017-09-21] MEDS: ASPIRIN 81 MG TABLET, ENT COATED PO SCH (10:27)
[2017-09-21] MEDS: DIPHENHYDRAMINE HCL 25 MG CAPSULE PO SCH (10:27)
[2017-09-21] MEDS: CHOLECALCIFEROL (D3) 400 UNIT TABLET PO SCH (10:28)
[2017-09-21] MEDS: VITAMIN E (DL, ACETATE) 400 UNIT CAPSULE PO SCH (10:28)
[2017-09-21] MEDS: FLUTICASONE NASAL SPRAY 50 MCG/SPRY 120 SPRAY/16 GM NASL SCH (10:28)
[2017-09-21] MEDS: FLUTICASONE/SALMETEROL DISKUS 250-50 MCG/DOSE IH SCH (10:29)
[2017-09-21] MEDS: ACETAMINOPHEN 325 MG TABLET PO PRN (11:39)
[2017-09-21 11:51] VITALS: BP 111/58
--- NOTE | 2017-09-21 16:51 | PDOC DISCHARGE SUMMARY ---
General - Admit/Disc Date/PCP Admission Date/Primary Care Provider: 09/17/17 21:42 ANDREEA MARIE Discharge Date: 09/21/17 - Discharge Diagnosis (1) Anemia Is this a current diagnosis for this admission?: Yes (3) Chronic kidney disease Is this a current diagnosis for this admission?: Yes (4) Chronic respiratory failure Is this a current diagnosis for this admission?: Yes (5) Dehydration Is this a current diagnosis for this admission?: Yes (6) Diabetes Is this a current diagnosis for this admission?: Yes (7) Pneumonia Is this a current diagnosis for this admission?: Yes (8) Vomiting and diarrhea Is this a current diagnosis for this admission?: Yes - Additional Information Resuscitation Status: Full Code Home Medications: Aspirin [Aspirin EC] 81 mg PO DAILY 09/18/17 Cholecalciferol (Vitamin D3) [Vitamin D3 400 Unit Tablet] 400 unit PO DAILY Diphenhydramine HCl [Benadryl] 25 mg PO DAILY 09/18/17 Fluticasone/Salmeterol [Advair 250-50 Diskus 28 dose] 1 inh IH Q12 09/18/17 Ipratropium/Albuterol Sulfate [Combivent Respimat 4 gm Mdi] 1 puff IH QID Levothyroxine Sodium [Synthroid] 112 mcg PO DAILY 09/18/17 Pantoprazole Sodium [Protonix] 40 mg PO DAILY 09/18/17 Simvastatin [Zocor 20 mg Tablet] 20 mg PO QPM 09/18/17 Spironolactone [Aldactone 25 mg Tablet] 25 mg PO DAILY 09/18/17 Vitamin E (Dl, Acetate) [Vitamin E 400 Unit Capsule] 400 unit PO DAILY 09/18/17 History of Present Illness History of Present Illness: LUIS EDUARDO GARDNER is a 62 year old female with a past medical history of oxygen dependent COPD, stage III chronic kidney disease, diabetes, recurrent urinary tract infection, obstructive sleep apnea and morbid obesity. She presented after 6 hours of nausea vomiting and diarrhea followed by shortness of breath. Several members of her family had similar symptoms of GI complaints. She denied chest pain or palpitations. In the emergency room she was found to have leukocytosis, tachypnea and a chest x-ray with bibasilar infiltrate suggestive of pneumonia. She was started on empiric antibiotics, albuterol and referred to the hospitalist for admission Hospital Course Hospital Course: Patient was admitted under the hospitalist service. She was started on nebulizer treatment, IV antibiotic treatment and hydration IV with further improvement of symptoms. BUN at the time of discharge was 16 and creatinine 1.57. Hemoglobin was 10.4 and hematocrit 31.6. Dropping hemoglobin was felt to be dilutional in nature as patient was dehydrated on admission . Patient did not require any adjustments on oxygen. Since patient had achieved maximum benefit of hospitalization stay prompted to discharge under stable condition Physical Exam Vital Signs: Temp Pulse Resp BP Pulse Ox 98.1 F 81 12 113/55 L 98 09/21/17 07:54 09/21/17 07:54 09/21/17 07:54 09/21/17 07:54 09/21/17 07:54 Intake & Output 09/20/17 09/21/17 09/22/17 06:59 06:59 06:59 Intake Total 1802 1582 Output Total 1300 Balance 1802 282 Weight 88.3 kg 88.2 kg General appearance: PRESENT: no acute distress, cooperative, obese Head exam: PRESENT: atraumatic, normocephalic Eye exam: PRESENT: conjunctiva pink, EOMI, PERRLA Ear exam: PRESENT: normal external ear exam, TM's normal bilaterally Mouth exam: PRESENT: moist, neck supple Neck exam: PRESENT: full ROM. ABSENT: JVD, lymphadenopathy, tenderness Respiratory exam: PRESENT: clear to auscultation angel Cardiovascular exam: PRESENT: RRR. ABSENT: diastolic murmur, systolic murmur Vascular exam: PRESENT: normal capillary refill GI/Abdominal exam: PRESENT: normal bowel sounds, soft. ABSENT: tenderness Extremities exam: PRESENT: clubbing, full ROM. ABSENT: joint swelling, pedal edema Musculoskeletal exam: PRESENT: ambulatory, full ROM Neurological exam: PRESENT: alert, awake, oriented to person, oriented to place , oriented to time, oriented to situation, CN II-XII grossly intact Psychiatric exam: PRESENT: appropriate affect, normal mood Skin exam: PRESENT: intact, normal color Results Laboratory Results: 09/20/17 05:47 09/20/17 05:47 Impressions: Chest X-Ray 09/17/17 19:51 IMPRESSION: COPD. PATCHY BIBASILAR OPACITIES COULD BE SUBSEGMENTAL ATELECTASIS , ASPIRATION, OR DEVELOPING PNEUMONIA. Plan Discharge Plan: Discharge home Time Spent: Less than 30 Minutes
== END 2017-09-21 12:27 | disposition home or self-care (01) | DRG 194 ==
LOC: ER 19:01 → EH 21:42 → 4S 09-18 00:25
PROVIDERS: ADMIT Internal Medicine; ATTEND Internal Medicine
PROC: 5A09357 Assistance with Respiratory Ventilation, Less than 24 Consecutive Hours, Continuous Positive Airway Pressure (ICD-10-PCS; principal; 2017-09-18)
PROC: 3E0F73Z Introduction of Anti-inflammatory into Respiratory Tract, Via Natural or Artificial Opening (ICD-10-PCS; 2017-09-18)
DX: J18.9 Pneumonia, unspecified organism (principal); J44.1 Chronic obstructive pulmonary disease with (acute) exacerbation; E87.2 Acidosis; J96.10 Chronic respiratory failure, unspecified whether with hypoxia or hypercapnia; J44.0 Chronic obstructive pulmonary disease with (acute) lower respiratory infection; G47.33 Obstructive sleep apnea (adult) (pediatric); E11.9 Type 2 diabetes mellitus without complications; D63.1 Anemia in chronic kidney disease; I12.9 Hypertensive chronic kidney disease with stage 1 through stage 4 chronic kidney disease, or unspecified chronic kidney disease; E11.22 Type 2 diabetes mellitus with diabetic chronic kidney disease; N18.3 Chronic kidney disease, stage 3 (moderate); E86.0 Dehydration; R11.10 Vomiting, unspecified; R19.7 Diarrhea, unspecified; E66.01 Morbid (severe) obesity due to excess calories; Z68.34 Body mass index [BMI] 34.0-34.9, adult; Z79.899 Other long term (current) drug therapy; Z09 Encounter for follow-up examination after completed treatment for conditions other than malignant neoplasm; Z99.81 Dependence on supplemental oxygen; Z90.49 Acquired absence of other specified parts of digestive tract; Z90.710 Acquired absence of both cervix and uterus; Z87.891 Personal history of nicotine dependence; Z88.8 Allergy status to other drugs, medicaments and biological substances; Z88.6 Allergy status to analgesic agent; Z91.040 Latex allergy status; Z82.49 Family history of ischemic heart disease and other diseases of the circulatory system; Z83.6 Family history of other diseases of the respiratory system
CPT/HCPCS: 36415; 71045; 80048; 80053; 81001; 82962; 83690; 83735; 85025; 87040; 87493; 87804; 94640; 94667; 94668; 94799; 96361; 96374; 99285; J0456; J0696; J1644; J1956; J2405; J3490; J7030; J7060; J7620; S0119